=== PATIENT | female | born 1990 | race Hispanic/Latino ===

== ENCOUNTER 2022-11-07 09:39 | Emergency (ER) | payer OTHER ==
[2022-11-07 10:57] LABS: Fetal Membranes Rupture No Membranes Rupture (No Rupture)
[2022-11-08 16:28] LABS: Chlamydia by PCR Not Detected (NotDetected); GC by PCR Not Detected (NotDetected)
== END 2022-11-07 12:12 | disposition home or self-care (01) ==
LOC: CSHERS 09:39
DX: O23.592 Infection of other part of genital tract in pregnancy, second trimester (principal); N89.8 Other specified noninflammatory disorders of vagina; Z3A.16 16 weeks gestation of pregnancy
CPT/HCPCS: 76815; 84112; 87480; 87491; 87510; 87591; 87660

== ENCOUNTER 2023-04-14 21:43 | Inpatient (IN) | payer OTHER ==
[2023-04-14 22:34] VITALS: BMI 28.7
[2023-04-14 22:49] LABS: Fetal Membranes Rupture No Membranes Rupture (No Rupture)
[2023-04-15] MEDS ORDERED: hydrALAZINE 20 MG/ML VIAL SLOW IVP PRN ×2 (00:15→02:33)
[2023-04-15] MEDS ORDERED: Promethazine HCl 25 MG/ML VIAL IM PRN ×3 (02:33→19:45)
[2023-04-15] MEDS ORDERED: Ondansetron PF 4 MG/2 ML Vial IVP PRN ×3 (02:33→19:45)
[2023-04-15] MEDS ORDERED: Lidocaine 1% (PF) 30 ML VIAL SC PRN (02:51)
[2023-04-15] MEDS ORDERED: Penicillin G 2.5 MILL.units 2.5 MILL.UNITS in Premix Bag 1 BAG IVPB SCH (03:00)
[2023-04-15] MEDS ORDERED: Penicillin G Potassium 5 MILL.UNITS in Sodium Chloride 0.9% 100 ML IVPB SCH (03:00)
[2023-04-15] MEDS ORDERED: Lactated Ringer's 1,000 ML IV SCH (03:00)
[2023-04-15 03:05] LABS: Hemoglobin 13.1 g/dL (12.0-15.5); Mean Corpuscular Hemoglobin 32.6 pg (27.0-33.0); Mean Platelet Volume 8.9 fl (7.4-10.4); Platelet Count 230 10x3/uL (150-450); RBC Distribution Width 12.8 % (11.5-14.5); Red Blood Cell (RBC) Count 4.02 10x6/uL (3.90-5.03); White Blood Cell (WBC) Count 13.2 10x3/uL (3.5-10.5)
[2023-04-15] MEDS ORDERED: NS w/ Oxytocin 30 units 500 ML IV SCH ×2 (03:15→14:30)
[2023-04-15 03:35] LABS: HBSAg Index 0.16 S/CO (0-0.99); Hep B Surf Ag - L&D Non-Reactive S/CO (NonReactive); Syphilis Antibody Nonreactive (Nonreactive); Syphilis Antibody Index 0.14 S/CO (<1.00 Non-Reactive)
[2023-04-15] MEDS: Misoprostol 100 MCG TAB VAG SCH ×2 (03:40→06:23)
[2023-04-15] MEDS ORDERED: fentaNYL 50 mcg/mL 1 mL Vial SLOW IVP SCH (06:30)
[2023-04-15] MEDS ORDERED: fentaNYL/Ropivacaine Epidural 100 ML ONE ×2 (08:14→16:33)
[2023-04-15] MEDS ORDERED: Lactated Ringer's 500 ML IV PRN (08:38)
[2023-04-15] MEDS ORDERED: Moisturizing Cream (Eucerin) 113 GM JAR TOP PRN ×2 (08:38→19:45)
[2023-04-15] MEDS ORDERED: ePHEDrine Sulfate 50 MG/10 ML VIAL SLOW IVP PRN (08:38)
[2023-04-15] MEDS ORDERED: Acetaminophen 325 MG TAB PO PRN (08:38)
[2023-04-15] MEDS ORDERED: Naloxone HCl 0.4 mg/ml Vial IVP PRN ×4 (08:38→19:45)
[2023-04-15] MEDS ORDERED: diphenhydrAMINE 50 MG/ML VIAL IVP PRN ×2 (08:38→19:45)
[2023-04-15] MEDS ORDERED: fentaNYL 2 mcg/Ropivacaine 0.2% Epidural 100 ML CADD EPIDURAL SCH (08:45)
[2023-04-15] MEDS ORDERED: Communication Order-Pharmacy FS SCH ×2 (08:45→19:45)
[2023-04-15] MEDS ORDERED: Azithromycin 500 MG in Sodium Chloride 0.9% 250 ML 250 ML IVPB SCH (19:45)
[2023-04-15] MEDS ORDERED: Fentanyl 100 MCG/2 ML VIAL SLOW IVP PRN (19:45)
[2023-04-15] MEDS ORDERED: Famotidine/PF 20 mg/2ml Vial SLOW IVP PRN (19:45)
[2023-04-15] MEDS ORDERED: CEFAZOLIN 2 GM in Sodium Chloride 0.9% 100 ML IVPB SCH (19:45)
[2023-04-15] MEDS ORDERED: Ketorolac Tromethamine 30 MG/ML VIAL IVP PRN (19:45)
[2023-04-15] MEDS ORDERED: Bicitra 30 ML UDCUP PO PRN (19:45)
[2023-04-15] MEDS ORDERED: Ketorolac Tromethamine 30 MG/ML VIAL IVP SCH (19:45)
[2023-04-15] MEDS ORDERED: Meperidine HCl/PF 25 MG/ML VIAL SLOW IVP PRN (19:45)
[2023-04-15] MEDS ORDERED: Ondansetron HCl/PF 4 MG/2 ML Vial IVP PRN (19:45)
[2023-04-15] MEDS ORDERED: Naloxone HCl 0.4 mg/ml Vial IV PRN (19:45)
[2023-04-15] MEDS ORDERED: Promethazine HCl 25 MG SUPP PR PRN (19:45)
[2023-04-15] MEDS ORDERED: CEFAZOLIN 2 GM VIAL ONE (19:46)
[2023-04-15] MEDS ORDERED: Azithromycin 500 MG VIAL ONE (19:47)
[2023-04-15] MEDS ORDERED: Famotidine/PF 20 mg/2ml Vial ONE (19:47)
[2023-04-15 20:24] LABS: RapidComm Collect By LHA; pH (Cord, venous) 7.169 (7.250-7.350)
[2023-04-16] MEDS ORDERED: Lanolin Ointment 7 GM TUBE TOP PRN (00:36)
[2023-04-16] MEDS ORDERED: Simethicone Chewable 80 MG TAB PO PRN (00:36)
[2023-04-16] MEDS ORDERED: Boostrix 0.5 ML (Tdap) VIAL (>/=7 yrs of age) IM ONE (00:36)
[2023-04-16] MEDS ORDERED: HYDROcodone/Acetaminophen 5/325 mg Tablet PO PRN (00:36)
[2023-04-16] MEDS ORDERED: Bisacodyl 10 MG SUPP PR PRN (00:36)
[2023-04-16] MEDS ORDERED: hydrALAZINE 20 MG/ML VIAL SLOW IVP PRN (00:36)
[2023-04-16] MEDS ORDERED: Docusate 100 MG CAP PO SCH (01:00)
[2023-04-16] MEDS ORDERED: Ferrous Sulfate 325 MG TAB PO SCH (01:00)
[2023-04-16 04:24] LABS: Hemoglobin 9.7 g/dL (12.0-15.5); Mean Corpuscular HGB CONC 34.4 g/dL (32.0-36.0); Mean Corpuscular Hemoglobin 32.3 pg (27.0-33.0); Mean Platelet Volume 9.2 fl (7.4-10.4); Platelet Count 223 10x3/uL (150-450); RBC Distribution Width 12.8 % (11.5-14.5); White Blood Cell (WBC) Count 17.5 10x3/uL (3.5-10.5)
[2023-04-16] MEDS: Prenatal Vitamin 1 TAB PO SCH (08:40)
[2023-04-16] MEDS: Docusate 100 MG CAP PO SCH ×2 (08:40→21:42)
[2023-04-16] MEDS: Ferrous Sulfate 325 MG TAB PO SCH ×2 (08:40→21:42)
[2023-04-16] MEDS: HYDROcodone/Acetaminophen 5/325 mg Tablet PO PRN (18:12)
[2023-04-16] MEDS: Ibuprofen 800 MG TAB PO SCH (21:42)
[2023-04-17] MEDS: Ibuprofen 800 MG TAB PO SCH ×3 (05:36→21:37)
[2023-04-17] MEDS: Docusate 100 MG CAP PO SCH ×2 (08:23→21:37)
[2023-04-17] MEDS: Ferrous Sulfate 325 MG TAB PO SCH ×2 (08:23→21:37)
[2023-04-17] MEDS: Prenatal Vitamin 1 TAB PO SCH (08:24)
[2023-04-17] MEDS: HYDROcodone/Acetaminophen 5/325 mg Tablet PO PRN (15:29)
[2023-04-17 20:33] VITALS: BP 114/74; TEMP 97.8
[2023-04-18] MEDS: Ibuprofen 800 MG TAB PO SCH (06:04)
[2023-04-18] MEDS: Ferrous Sulfate 325 MG TAB PO SCH (08:13)
[2023-04-18] MEDS: Prenatal Vitamin 1 TAB PO SCH (08:13)
[2023-04-18] MEDS: Docusate 100 MG CAP PO SCH (08:13)
== END 2023-04-18 11:20 | disposition home or self-care (01) | DRG 787 ==
LOC: CSHLD/OP 21:43 → CSHLD 04-15 02:51 → CSHPP 04-15 23:50
PROVIDERS: ADMIT Obstetrics & Gynecology; ATTEND Obstetrics & Gynecology
PROC: 10D00Z1 Extraction of Products of Conception, Low, Open Approach (ICD-10-PCS; principal; 2023-04-15)
PROC: 3E0P7VZ Introduction of Hormone into Female Reproductive, Via Natural or Artificial Opening (ICD-10-PCS; 2023-04-15)
PROC: 10907ZC Drainage of Amniotic Fluid, Therapeutic from Products of Conception, Via Natural or Artificial Opening (ICD-10-PCS; 2023-04-15)
PROC: 10H07YZ Insertion of Other Device into Products of Conception, Via Natural or Artificial Opening (ICD-10-PCS; 2023-04-15)
DX: O42.02 Full-term premature rupture of membranes, onset of labor within 24 hours of rupture (principal); D62 Acute posthemorrhagic anemia; Z3A.39 39 weeks gestation of pregnancy; Z37.0 Single live birth; O76 Abnormality in fetal heart rate and rhythm complicating labor and delivery; O99.824 Streptococcus B carrier state complicating childbirth; O77.0 Labor and delivery complicated by meconium in amniotic fluid; O90.81 Anemia of the puerperium
CPT/HCPCS: 36415; 51702; 76819; 82805; 84112; 85027; 86780; 86850; 86900; 86901; 87340; 99285; J1885; J2274; J2401; J2405; J2590; J3010; J7120